=== PATIENT | male | born 1995 | race Caucasian/White ===

== ENCOUNTER 2017-07-14 15:16 | Emergency (ER) | payer MEDICAID ==
[~2017-07-14] VITALS: Ht 175.3 cm; Wt 98.0 kg
[2017-07-14 15:43] VITALS: Ht 175.3 cm; Wt 98.0 kg
[2017-07-14 23:21] VITALS: BP 154/95
== END 2017-07-14 22:50 | disposition home or self-care (01) ==
LOC: ED 15:16
DX: J02.9 Acute pharyngitis, unspecified (principal)
CPT/HCPCS: J1885